=== PATIENT | female | born 1955 | race Caucasian/White ===

== ENCOUNTER → 2023-11-01 10:27 | Outpatient (BNVA) | payer MEDICARE, OTHER, SELFPAY | PROVIDERS: PCP Internal Medicine; Visit Provider Internal Medicine Rheumatology | DX: Z79.899 Other long term (current) drug therapy (principal); M19.90 Unspecified osteoarthritis, unspecified site; M45.6 Ankylosing spondylitis lumbar region; Z11.59 Encounter for screening for other viral diseases; Z11.1 Encounter for screening for respiratory tuberculosis; R76.8 Other specified abnormal immunological findings in serum; M47.897 Other spondylosis, lumbosacral region; M19.041 Primary osteoarthritis, right hand; M19.071 Primary osteoarthritis, right ankle and foot | CPT/HCPCS: 36415; 72072; 72100; 73130; 73630; 80076; 82306; 82565; 85025; 85651; 86160; 86162; 86200; 86235; 86255; 86376; 86431; 86480; 86704; 86800; 86803; 86812; 87340; 99204 ==

== ENCOUNTER → 2024-04-03 11:16 | Outpatient (BNVA) | payer MEDICARE, OTHER, SELFPAY | PROVIDERS: PCP Internal Medicine; Visit Provider Internal Medicine Rheumatology | DX: M25.50 Pain in unspecified joint (principal); Z68.42 Body mass index [BMI] 45.0-49.9, adult; R76.8 Other specified abnormal immunological findings in serum; Z11.1 Encounter for screening for respiratory tuberculosis; Z11.59 Encounter for screening for other viral diseases | CPT/HCPCS: 99214 ==